=== PATIENT | male | born 1985 | race Caucasian/White ===

== ENCOUNTER 2021-06-03 12:49 | Emergency (ER) | payer BC, SELFPAY ==
[2021-06-03 12:51] VITALS: BP 146/100; PULSE 83; RESP 16; TEMP 36.3; O2SAT 98; BMI 29.1
--- NOTE | 2021-06-03 13:31 | CT_ITS ---
STUDY: CT BRAIN WITHOUT CONTRAST REASON FOR EXAM: Male, 35 years old. Headache RADIATION DOSAGE (If Supplied By Facility): CTDIvol = ( 44.99 ) mGy, DLP = ( 863.60 ) mGycm TECHNIQUE: Transaxial CT imaging of the brain was performed without administration of intravenous contrast material. Individualized dose optimization techniques were used for this CT. COMPARISON: No relevant priors. FINDINGS: Normal soft tissue structures. Normal calvarium. Normal size ventricles and extra-axial spaces for the patient''s age. Normal white matter tracts of the cerebral hemispheres. Normal basal ganglia and thalami. Normal brainstem. Normal cerebellum. There is no intracranial hemorrhage. There are no findings of an acute ischemic infarction. Minimal degree of mucosal thickening of the right maxillary sinus. Nasal septal deviation to the left side of the midline. CT/Brain/Head without Contrast IMPRESSION: Normal unenhanced CT scan of the brain. Minimal degree of mucosal thickening of the right maxillary sinus. Electronically Signed: Alan Marcial MD at 14:13 EDT ,
--- NOTE | 2021-06-03 13:32 | EDS_ITS ---
HPI History of Present Illness Chief Complaint: Headache Narrative Narrative: 35-year-old male presenting with headache. He states this is the worst headache that he has had. He has no history of migraines. He states that started yesterday out of nowhere. Yesterday he had light sensitivity. He denies dizziness, lightheadedness, nausea, vomiting. No history of head trauma. No history of aneurysms and he or his family. Patient states that over the course of the day he took some Excedrin and wore sunglasses. His headache improved last evening and he was able to sleep. When he woke up this morning he states I felt pretty good. His headache returned and is on the left side. He has no light sensitivity today. No sound sensitivity. Again he has no dizziness, lightheadedness, nausea, vomiting. Patient called his primary care physician who sent him to the emergency room. PFS PFS Medical History no medical history Home Medications loratadine [Claritin] 10 mg PO DAILY 06/03/21 [History Last Taken Unknown] Allergy/AdvReac Type Severity Reaction Status Date / Time No Known Allergies Allergy Verified 06/03/21 12:50 Surgical History no surgical history Social History Smoking Status: Former smoker ROS ROS ED Constitutional Constitutional ED: Denies chills or fever(s) Eyes Eyes: Denies blurry vision or diplopia ENT ENT ED: Denies rhinorrhea or sore throat Cardiovascular Cardiovascular: Denies chest pain or palpitations Respiratory/Chest Respiratory/Chest: Denies cough, dyspnea or sputum Gastrointestinal Gastrointestinal: Denies abdominal pain, nausea or vomiting Genitourinary Genitourinary ED: Denies dysuria or hematuria Musculoskeletal Musculoskeletal: Denies arthralgias or myalgias Integumentary Denies abscess or rash Neurologic Neurologic: Reports headache(s); Denies paresthesias Psychiatric Psychiatric: Denies anxiety or depression EXAM Physical Exam Const Vital Signs: 06/03/21 12:51 Temperature 97.4 F L Temperature Source Temporal Pulse Rate 83 Respiratory Rate 16 Blood Pressure 146/100 H Blood Pressure Mean 115 Pulse Ox 98 Oxygen Delivery Method Room Air Positive well nourished and well developed General Appearance ED: well developed and NAD; Negative for pallor HEENT Reports normocephalic and moist mucous membranes atraumatic Eyes PERRL and EOMs intact bilaterally General Eye ED: Negative for pale conjunctiva Resp normal respiratory effort and clear to auscultation bilaterally Cardio regular rate and regular rhythm Neuro oriented x3, CN's II-XII intact bilaterally and no sensory deficits noted Sensorium / Orientation: awake and alert Motor Exam: strength 5/5 throughout Psych mental status grossly normal Skin General Skin Exam: Negative for jaundice or pallor MDM MDM MDM Narrative Medical decision making narrative: Patient presenting with headache. He states it was initially very bad and then went away and he was able to sleep woke up this morning feeling normal and his headache returned. Nobody else in the house has headaches. He does not have any infectious symptoms. No blurry vision, dizziness, lightheadedness, nausea. No history of trauma. Obtain basic lab work and his CBC and CMP are normal. CT of the brain is negative. Patient give n Compazine and Benadryl with some improvement of his pain. Since his CT head is negative I will add Toradol. Patient counseled that he will need follow-up and he could follow-up with his primary care provider and give referral to neurology if needed. Patient amenable to plan and discharged home in stable condition. Return precautions were discussed. Impression: 1. Headache Lab Data Attestation: I reviewed the patient's lab results. Labs: Laboratory Results - last 24 hr 06/03/21 06/03/21 13:48 13:48 WBC 9.7 RBC 4.77 Hgb 14.3 Hct 41.5 MCV 87.0 MCH 30.0 MCHC 34.5 RDW Std Deviation 38.0 RDW Coeff of Matthew 11.9 Plt Count 275 MPV 11.3 Immature Gran % (Auto) 0.300 Neut % (Auto) 67.9 Lymph % (Auto) 25.7 [place] % (Auto) 4.9 Eos % (Auto) 0.7 Baso % (Auto) 0.5 Absolute Neuts (auto) 6.6 Absolute Lymphs (auto) 2.50 Nucleated RBC % 0 Sodium 138 Potassium 3.5 Chloride 107 Carbon Dioxide 27.0 Anion Gap 4 L BUN 13 Creatinine 0.85 Estim Creat Clear Calc 134.47 Est GFR (MDRD) Af Amer 129 Est GFR (MDRD) Non-Af 107 BUN/Creatinine Ratio 15.2 Glucose 110 H Calcium 9.0 Total Bilirubin 0.40 AST 16 ALT 40 Alkaline Phosphatase 79 Total Protein 7.3 Albumin 3.7 Globulin 3.6 Albumin/Globulin Ratio 1.0 Radiography Diagnostic Testing: Clinical Impression(s) from Imaging Studies Brain CT 06/03/21 13:31 IMPRESSION: Normal unenhanced CT scan of the brain. Minimal degree of mucosal thickening of the right maxillary sinus. Electronically Signed: Alan Marcial MD at 14:13 EDT , Discharge Plan Triage Chief Complaint: Headache ED Provider: Fabrizio Otero Dx/Rx/DC Orders Instructions: ED Headache Unspecified Prescriptions: No Action loratadine [Claritin] 10 mg Tablet 10 mg PO DAILY RF: 0 Primary Care Provider: Michael Sloan Referrals: Michael Sloan MD [Primary Care Provider] - Disposition Disposition: Home, Self Care
[2021-06-03] MEDS: proCHLORPERazine 10 MG/2 ML Vial IV (13:45)
[2021-06-03] MEDS: DiphenhydrAMINE 50 MG/ML Syringe 25 MG IV (13:45)
[2021-06-03 13:58] LABS: Absolute Neutrophil Count 6.6 X10^3/uL (2.0-7.7); Basophil# 0.05 X10^3/uL; Basophil% 0.5 % (0-1); Eosinophil# 0.07 X10^3/uL; Eosinophils% 0.7 % (0-5); Hematocrit 41.5 % (40-54); Hemoglobin 14.3 g/dL (13.0-16.5); Lymphocyte % 25.7 % (19-41); Mean Corp Hgb Conc 34.5 g/dL (32-36); Mean Platelet Vol. 11.3 fl (6.2-12.0); Monocyte# 0.48 X10^3/uL; Monocyte% 4.9 % (0-10); NRBC Flagged by Analyzer 0 % (0-5); Neutrophil # 6.61 X10^3/uL (2.7-7.7); Neutrophil % 67.9 % (47-70); Platelet Count 275 K/mm3 (150-450); RBC Distribution Width CV 11.9 % (11.6-14.6); Red Blood Count 4.77 M/mm3 (4.6-6.2); White Blood Count 9.7 K/mm3 (4.4-11.0)
[2021-06-03 14:15] LABS: AST(SGOT) 16 U/L (15-37); Alanine Aminotransfer ALT/SGPT 40 U/L (16-61); Albumin, Serum 3.7 g/dL (3.2-5.0); Alkaline Phosphatase 79 U/L (45-117); Anion Gap 4 (5-15); BUN 13 mg/dL (7-18); BUN/Creat Ratio 15.2 RATIO (10-20); Chloride 107 mmol/L (98-107); Creatinine, Serum 0.85 mg/dL (0.70-1.30); EST Glomerular Filtration Rate 107 mL/min (>60); Est Glom Filt Rate - Afr Amer 129 mL/min (>60); Estimated Creatinine Clearance 134.47 ml/min; Globulin 3.6 g/dL (2.2-4.2); Glucose 110 mg/dL (74-106); Potassium 3.5 mmol/L (3.5-5.1); Protein, Total 7.3 g/dL (6.4-8.2); Sodium Level 138 mmol/L (136-145)
[2021-06-03] MEDS: Ketorolac 15 MG/ML Vial IV (14:38)
== END 2021-06-03 14:42 | disposition home or self-care (01) ==
PROVIDERS: Emergency Provider Student in an Organized Health Care Education/Training Program; PCP Family Medicine; Visit Provider Student in an Organized Health Care Education/Training Program
DX: R51.9 Headache, unspecified (principal); Z87.891 Personal history of nicotine dependence
CPT/HCPCS: 70450; 80053; 85025; 96374; 96375; 99282; A4216

== ENCOUNTER 2021-06-04 08:42 | Emergency (ER) | payer BC, SELFPAY ==
[2021-06-04 08:43] VITALS: BP 153/98; PULSE 69; RESP 14; TEMP 36.2; O2SAT 100; BMI 27.0
--- NOTE | 2021-06-04 09:10 | EDS_ITS ---
HPI History of Present Illness Chief Complaint: Headache Informant: patient and spouse/S.O. Onset/Context/Timing Onset: Days Context: Gradual Timing: Intermittent Quality -Headache: Positive for Dull; Negative for Similar Prior Headaches and Sharp Current Severity: Mild Maximum Severity: Moderate Associated Symptoms/Injury Associated Symptoms: Negative for Fever, Nausea, Vomiting, Sore Throat, Sinus Pressure, Numbness, Tingling, Preceding Aura, Visual Changes, Blurred Vision, Photophobia and Visual Loss Injury - PEREZ: Negative for Direct Trauma, Fall and Assault Narrative Narrative: 35-year-old male past medical history of anxiety for which he is on Prozac. States he had a left-sided headache which was gradual in onset since Wednesday. He was seen in the emergency department had a CAT scan yesterday which was negative. He was treated with meds and got some relief. He also had screening labs which were unremarkable. States from time to time not typically like this. They are normally not severe. There is no family history of intracranial bleeds or aneurysms. Said it was gradual onset not thunderclap. Is been somewhat intermittent. He denies any fever or chills. No trauma. No neurological symptoms. He is on no blood thinners. Prior similar symptoms: No Recent Illness/Hospitalization: No PFSH PFSH Home Medications loratadine [Claritin] 10 mg PO DAILY 06/03/21 [History Last Taken Unknown] Allergy/AdvReac Type Severity Reaction Status Date / Time No Known Allergies Allergy Verified 06/04/21 09:28 Social History Smoking Status: Former smoker ROS ROS ED ROS Narrative Left-sided headache. Review of Systems ROS Unobtainable: Denies due to encephalopathy Constitutional Constitutional ED: Denies chills or fever(s) Eyes Eyes: Denies change in vision ENT ENT ED: Denies ear pain, rhinorrhea or sore throat Cardiovascular Cardiovascular: Denies chest pain Respiratory/Chest Respiratory/Chest: Denies cough, dyspnea or sputum Gastrointestinal Gastrointestinal: Denies abdominal pain, diarrhea, nausea or vomiting Genitourinary Genitourinary ED: Denies dysuria Musculoskeletal Musculoskeletal: Denies arthralgias, myalgias or neck pain Integumentary Denies rash Neurologic Neurologic: Reports headache(s); Denies paresthesias, weakness or other Psychiatric Psychiatric: Denies depression Endocrine Endocrinology: Denies polyuria Hematologic/Lymphatic Hematologic/Lymphatic: Denies easy bruising Allergic/Immunologic Allergic/Immunologic ED: Denies urticaria EXAM Physical Exam Narrative Exam Narrative: 35-year-old male no acute distress. Vital signs stable afebrile. Blood pressure is elevated 153/98. Clinically looks well. at bedside. H EENT exam normal. Atraumatic. Scalp nontender. No facial droop. Pupils round reactive light extra motions intact. No trauma. No sinus tenderness. Neck nontender no meningismus. Lungs are clear. Heart regular rhythm no murmur. Abdomen soft nontender. Moving all 4 extremities. 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 Normal dorsi plantar flexion. Neurologic exam normal. NIH is 0. Fingertip to nose within normal limits. Const Vital Signs: 06/04/21 08:43 Temperature 97.2 F L Temperature Source Temporal Pulse Rate 69 Respiratory Rate 14 Blood Pressure 153/98 H Blood Pressure Mean 116 Pulse Ox 100 Oxygen Delivery Method Room Air Positive well nourished and well developed; Negative for obese, cachectic, contractures or unkempt General Appearance ED: well developed and NAD; Negative for unkempt, cachectic, contractures, cyanotic, diaphoretic or pallor Nutritional Appearance: Negative for cachectic or obese HEENT Reports normocephalic and moist mucous membranes; Denies dry mucous membranes atraumatic; Negative for trauma, tenderness, temporal artery tenderness or vesicular rash Face and Sinus: Negative for sinus tenderness Mouth ED: No dry mucous membranes Mouth: No dry mucous membranes Eyes PERRL and EOMs intact bilaterally General Eye ED: Negative for pale conjunctiva or scleral icterus Neck no lymphadenopathy, supple, no meningeal signs and no JVD General: Negative for tenderness Resp normal respiratory effort and clear to auscultation bilaterally Auscultation: Negative for rales, rhonchi, wheezes or diminished lung sounds Cardio regular rate, regular rhythm, S1 normal heart sound, S2 normal heart sound and no murmurs GI non-tender and non-distended Auscultation: normoactive bowel sounds Palpation: soft; Negative for firm, tender, guarding or rigid Back/Spine no CVA tenderness General Back: Negative for CVA tenderness or tenderness Cervical Spine: Negative for cervical spine tenderness Thoracic Spine / Upper Back: Negative for thoracic spinal tenderness Extremity normal to inspection and full ROM General Extremety ED: Negative for edema or tenderness General Extremity: Negative for edema Neuro oriented x3 and CN's II-XII intact bilaterally Sensorium / Orientation: awake, alert, oriented to person, oriented to place and oriented to time; Negative for orientation impaired, lethargic or stuporous Motor Exam: Negative for strength 5/5 throughout or strength abnormal Psych mental status grossly normal Appearance: Negative for unkempt Attitude: No agitated Mood & Affect: Negative for depressed or tearful Skin General Skin Exam: Negative for jaundice or pallor Lesions: no lesions Rashes: no rashes MDM MDM MDM Narrative Medical decision making narrative: 35-year-old male with left-sided headache. Normal exam. Prior CAT scan labs were negative. He will be treated with IV Toradol, Benadryl and Compazine and fluids. Reassess. His neurologic exam is completely normal. Repeat exam at 9:55 AM the headache is starting to greatly improved after medications. His neurologic exam remains normal. I did review his CAT scan from yesterday which was read as unremarkable and his CBC and chemistry are unremarkable. I do not have a specific cause for his headache. No one else at home is having headaches. He will be discharged to follow-up with his primary. Repeat exam patient is doing well at 10:28 AM. Will be discharged to home. We discussed that at this time he does not need additional imaging if this is not improving they may follow-up with her primary care physician and discuss a possible MRI. Discharge Plan Triage Chief Complaint: Headache ED Provider: Jose Keane Dx/Rx/DC Orders Clinical Impression: Headache Instructions: ED Headache Unspecified Prescriptions: No Action loratadine [Claritin] 10 mg Tablet 10 mg PO DAILY RF: 0 Primary Care Provider: Michael Sloan Referrals: Michael Sloan MD [Primary Care Provider] - 3-5 Days if not improving Activity Restrictions/Additional Instructions: Motrin and Tylenol for your pain. Follow-up with your doctor if not improving. Disposition Disposition: Home, Self Care
[2021-06-04] MEDS: Ketorolac 30 MG/ML Syringe IV (09:23)
[2021-06-04] MEDS: DiphenhydrAMINE 50 MG/ML Syringe IV (09:25)
[2021-06-04] MEDS: proCHLORPERazine 10 MG/2 ML Vial IV (09:26)
[2021-06-04] MEDS: 0.9% Normal Saline 1,000 ML 999 ML IV (09:27)
--- NOTE | 2021-06-04 11:20 | CT_ITS ---
STUDY: CTA HEAD AND NECK WITH CONTRAST REASON FOR EXAM: Male, 35 years old. Left sided headache RADIATION DOSAGE (If Supplied By Facility): CTDIvol = ( 28.01 ) mGy, DLP = ( 1672.71 ) mGycm TECHNIQUE: CT angiography was performed with a multi-detector CT scanner. Data acquisition was obtained from the skull base through the vertex following intravenous administration of IV 100mL [id number]. MIP images were reconstructed from the axial data set. Post-processing of the angiographic images was performed, with multiplanar reformation and 3D reconstruction. Individualized dose optimization techniques were used for this CT. COMPARISON: No relevant priors. FINDINGS: Normal bilateral petrous carotid arteries. Normal right cavernous carotid artery with a normal supraclinoid bifurcation. Normal left cavernous carotid artery with a normal supraclinoid bifurcation. Normal right A1 segments of the anterior cerebral artery. Normal left A1 segments of the anterior cerebral artery. Normal intact anterior communicating artery (ACOM). Normal bilateral A2 segments of the anterior cerebral arteries. Normal right M1 and M2 segments of the middle cerebral arteries, with a normal M1 bifurcation. Normal left M1 and M2 segments of the middle cerebral arteries, with a normal M1 bifurcation. Normal right posterior communicating artery (PCOM). Normal left posterior communicating artery (PCOM). Normal bilateral vertebral arteries. Normal basilar artery with a normal basilar bifurcation. The visualized bilateral superior cerebellar (SCA) arteries are normal. Normal bilateral P1, P2 and visualized P3 segments of the posterior cerebral arteries. There is no demonstrated aneurysm of the [place]. There is no demonstrated abnormality of the visualized brain. AORTIC ARCH: Normal visualized aortic arch. Normal origins of the brachiocephalic, left common carotid, and left subclavian arteries. RIGHT CAROTID ARTERIES: Normal right common carotid artery (CCA). Normal right common carotid bulb. Normal origin of the right internal carotid (ICA) artery without a hemodynamically significant stenosis. Normal visualized cervical portion of the right internal carotid artery. Normal origin of the right external carotid artery (ECA). LEFT CAROTID ARTERIES: Normal left common carotid artery (CCA). Normal left common carotid bulb. Normal origin of the left internal carotid (ICA) artery without a hemodynamically significant stenosis. Normal visualized cervical portion of the left internal carotid artery. Normal origin of the left external carotid artery (ECA). VERTEBRAL ARTERIES: There is enhancement within the bilateral vertebral arteries with a small right vertebral artery, and a dominant left vertebral artery. CT/CTA Head AND Neck W/ Contrast IMPRESSION: Normal CTA Head and neck with contrast. Electronically Signed: Alan Marcial MD at 12:05 EDT ,
[2021-06-04 12:17] VITALS: BP 136/78; PULSE 82; RESP 16; O2SAT 98
== END 2021-06-04 12:18 | disposition home or self-care (01) ==
PROVIDERS: Emergency Provider Emergency Medicine; PCP Family Medicine; Visit Provider Emergency Medicine
DX: R51.9 Headache, unspecified (principal); F41.9 Anxiety disorder, unspecified; Z87.891 Personal history of nicotine dependence
CPT/HCPCS: 70496; 70498; 96361; 96374; 96375; 99282; J7030; Q9967; A4216